=== PATIENT | male | born 1985 | race Caucasian/White ===

== ENCOUNTER 2021-02-14 08:27 | Inpatient (IN) | payer OTHER ==
[2021-02-14 10:00] VITALS: BMI 19.5
[2021-02-14] MEDS ORDERED: IBUPROFEN 400 MG TABLET (FP) PO PRN (10:30)
[2021-02-14] MEDS ORDERED: MAGNESIUM CITRATE 300 ML BOTTLE PO PRN (10:30)
[2021-02-14] MEDS ORDERED: METHOCARBAMOL 500 MG TABLET PO PRN (10:30)
[2021-02-14] MEDS ORDERED: cloNIDine HCL 0.1 MG TABLET PO PRN (10:30)
[2021-02-14] MEDS ORDERED: BISMUTH SUBSALICYLATE 262 MG/15 ML BTL PO PRN (10:30)
[2021-02-14] MEDS ORDERED: MENTHOL/PHENOL 1 EACH UD MM PRN (10:30)
[2021-02-14] MEDS ORDERED: NICOTINE POLACRILEX 2 MG GUM BUC PRN (10:30)
[2021-02-14] MEDS ORDERED: MAG HYDROX/AL HYDROX/SIMETH 30 ML UNIT-DOSE CUP PO PRN (10:30)
[2021-02-14] MEDS ORDERED: MAGNESIUM HYDROX 2400MG/30ML ORAL SUSPENSION 30 ML CUP PO PRN (10:30)
[2021-02-14] MEDS ORDERED: METHADONE HCL 10 MG TABLET (FOR DETOX USE ONLY) PO ONE (10:30)
[2021-02-14] MEDS ORDERED: ACETAMINOPHEN 325 MG TABLET (FP) PO PRN ×2 (10:30)
[2021-02-14] MEDS ORDERED: ONDANSETRON *ODT* 4 MG TABLET SL PRN (10:30)
[2021-02-14] MEDS: PRENATAL VITAMINS W/ FOLIC ACID TABLET (FP) PO SCH (11:35)
[2021-02-14] MEDS: NICOTINE 14 MG/24 HOURS TOPICAL PATCH TD SCH (11:39)
[2021-02-14] MEDS ORDERED: COVID-19 VAC,AD26(JANSSEN)/PF 0.5 ML IM ONE (12:00)
[2021-02-14 13:40] LABS: HEMATOCRIT 45.2 % (35.4-49); HEMOGLOBIN 14.7 GM/dL (11.7-16.9); MCH 28.4 pg (25.7-33.7); MCHC 32.5 g/dl (32.0-35.9); MEAN CELL VOLUME 87.4 fl (80-96); MEAN PLT VOLUME 10.2 fl (7.5-11.1); PLATELET COUNT 150 10^3/uL (134-434); RBC 5.18 M/mm3 (4.00-5.60); RDW 14.3 % (11.9-15.9); WHITE BLOOD COUNT 6.9 K/mm3 (4.0-10.0)
[2021-02-14 13:53] LABS: BLOOD UREA NITROGEN 12.9 mg/dL (7-18)
[2021-02-14] MEDS: hydrOXYzine PAMOATE 25 MG CAPSULE (FP) PO SCH ×3 (13:54→22:52)
[2021-02-14 14:00] LABS: BILIRUBIN,TOTAL 0.3 mg/dL (0.2-1); TOT PROT 7.6 g/dl (6.4-8.2)
[2021-02-14 14:10] LABS: ALBUMIN 4.2 g/dl (3.4-5.0); CALCIUM 9.6 mg/dL (8.5-10.1)
[2021-02-14 14:35] LABS: HIV INTERPRETATION NEGATIVE (NEGATIVE)
[2021-02-14] MEDS ORDERED: MELATONIN 5 MG TABLETS PO SCH (22:00)
[2021-02-14] MEDS: THIAMINE HCL 100 MG TABLET (FP) PO SCH (22:53)
[2021-02-15] MEDS: hydrOXYzine PAMOATE 25 MG CAPSULE (FP) PO SCH ×7 (06:53→23:39)
[2021-02-15] MEDS ORDERED: METHADONE HCL 5 MG TABLET (FOR DETOX USE ONLY) ONE (08:45)
[2021-02-15] MEDS ORDERED: METHADONE HCL 10 MG TABLET (FOR DETOX USE ONLY) ONE (08:46)
[2021-02-15] MEDS ORDERED: METHADONE (DETOX) 20 MG, METHADONE (DETOX) 5 MG PO ONE (10:00)
[2021-02-15] MEDS: NICOTINE 14 MG/24 HOURS TOPICAL PATCH TD SCH (10:33)
[2021-02-15] MEDS: PRENATAL VITAMINS W/ FOLIC ACID TABLET (FP) PO SCH (10:33)
[2021-02-15] MEDS: diazePAM 5 MG TABLET PO PRN (10:34)
[2021-02-15] MEDS: THIAMINE HCL 100 MG TABLET (FP) PO SCH ×2 (22:54→23:38)
[2021-02-15] MEDS: MELATONIN 5 MG TABLETS PO PRN (23:39)
[2021-02-16] MEDS: hydrOXYzine PAMOATE 25 MG CAPSULE (FP) PO SCH ×5 (06:31→22:18)
[2021-02-16] MEDS ORDERED: METHADONE HCL 10 MG TABLET (FOR DETOX USE ONLY) PO ONE (10:00)
[2021-02-16] MEDS: NICOTINE 14 MG/24 HOURS TOPICAL PATCH TD SCH (10:58)
[2021-02-16] MEDS: PRENATAL VITAMINS W/ FOLIC ACID TABLET (FP) PO SCH (10:58)
[2021-02-16] MEDS: THIAMINE HCL 100 MG TABLET (FP) PO SCH (22:18)
[2021-02-17] MEDS: hydrOXYzine PAMOATE 25 MG CAPSULE (FP) PO SCH ×5 (06:46→22:08)
[2021-02-17] MEDS ORDERED: METHADONE HCL 5 MG TABLET (FOR DETOX USE ONLY) ONE (09:25)
[2021-02-17] MEDS ORDERED: METHADONE HCL 10 MG TABLET (FOR DETOX USE ONLY) ONE (09:25)
[2021-02-17] MEDS ORDERED: METHADONE (DETOX) 10 MG, METHADONE (DETOX) 5 MG PO ONE (10:00)
[2021-02-17] MEDS: NICOTINE 14 MG/24 HOURS TOPICAL PATCH TD SCH (10:09)
[2021-02-17] MEDS: PRENATAL VITAMINS W/ FOLIC ACID TABLET (FP) PO SCH (10:11)
[2021-02-17] MEDS: diazePAM 5 MG TABLET PO PRN ×3 (10:11→22:08)
[2021-02-17] MEDS: THIAMINE HCL 100 MG TABLET (FP) PO SCH (22:10)
[2021-02-18] MEDS: hydrOXYzine PAMOATE 25 MG CAPSULE (FP) PO SCH ×5 (06:02→22:05)
[2021-02-18] MEDS ORDERED: METHADONE HCL 10 MG TABLET (FOR DETOX USE ONLY) PO ONE (10:00)
[2021-02-18] MEDS: PRENATAL VITAMINS W/ FOLIC ACID TABLET (FP) PO SCH (10:03)
[2021-02-18] MEDS: NICOTINE 14 MG/24 HOURS TOPICAL PATCH TD SCH (10:05)
[2021-02-18] MEDS: THIAMINE HCL 100 MG TABLET (FP) PO SCH (22:03)
[2021-02-18] MEDS: MELATONIN 5 MG TABLETS PO PRN (22:04)
[2021-02-19] MEDS: hydrOXYzine PAMOATE 25 MG CAPSULE (FP) PO SCH ×4 (05:23→17:17)
[2021-02-19] MEDS ORDERED: METHADONE HCL 5 MG TABLET (FOR DETOX USE ONLY) PO ONE (06:00)
[2021-02-19] MEDS: PRENATAL VITAMINS W/ FOLIC ACID TABLET (FP) PO SCH (10:04)
[2021-02-19] MEDS: NICOTINE 14 MG/24 HOURS TOPICAL PATCH TD SCH (10:04)
[2021-02-19 16:56] VITALS: BP 114/76; PULSE 62; TEMP 97.7
== END 2021-02-19 17:16 | disposition other institution (70) | DRG 773 ==
LOC: YASAS 08:27 → Y6N 11:06
PROVIDERS: ADMIT Allergy & Immunology; ATTEND Allergy & Immunology
PROC: HZ2ZZZZ Detoxification Services for Substance Abuse Treatment (ICD-10-PCS; principal; 2021-02-14)
DX: F11.23 Opioid dependence with withdrawal (principal); F14.20 Cocaine dependence, uncomplicated; F12.20 Cannabis dependence, uncomplicated; F17.210 Nicotine dependence, cigarettes, uncomplicated; F19.282 Other psychoactive substance dependence with psychoactive substance-induced sleep disorder; Z62.810 Personal history of physical and sexual abuse in childhood; Z91.5 Personal history of self-harm; Z56.0 Unemployment, unspecified; Z59.0 Homelessness
CPT/HCPCS: 0031A; 36415; 80053; 85027; 86780; 87389; 91303; 93005; 93010; C9803; U0003; U0005

== ENCOUNTER 2021-02-19 17:24 | Inpatient (IN) | payer OTHER ==
[2021-02-19] MEDS ORDERED: LOPERAMIDE HCL 2 MG CAPSULE PO PRN (17:58)
[2021-02-19] MEDS ORDERED: MAG HYDROX/AL HYDROX/SIMETH 30 ML UNIT-DOSE CUP PO PRN (17:58)
[2021-02-19] MEDS ORDERED: guaiFENesin 200 MG/10 ML 10 ML UNIT-DOSE CUPS PO PRN (17:58)
[2021-02-19] MEDS ORDERED: MAGNESIUM HYDROX 2400MG/30ML ORAL SUSPENSION 30 ML CUP PO PRN (17:58)
[2021-02-19] MEDS ORDERED: NICOTINE POLACRILEX 2 MG GUM BUC PRN (17:58)
[2021-02-19] MEDS ORDERED: MAGNESIUM CITRATE 300 ML BOTTLE PO PRN (17:58)
[2021-02-19] MEDS ORDERED: MENTHOL/PHENOL 1 EACH UD MM PRN (17:58)
[2021-02-19] MEDS ORDERED: ACETAMINOPHEN 325 MG TABLET (FP) PO PRN (17:58)
[2021-02-19] MEDS ORDERED: P-EPHED 60MG/TRIPROLIDI 2.5MG TABLET PO PRN (17:58)
[2021-02-19] MEDS: MELATONIN 5 MG TABLETS PO SCH (21:29)
[2021-02-19] MEDS: THIAMINE HCL 100 MG TABLET (FP) PO SCH (21:29)
[2021-02-20] MEDS: PRENATAL VITAMINS W/ FOLIC ACID TABLET (FP) PO SCH (09:45)
[2021-02-20] MEDS: MELATONIN 5 MG TABLETS PO SCH (21:18)
[2021-02-20] MEDS: THIAMINE HCL 100 MG TABLET (FP) PO SCH (21:18)
[2021-02-21] MEDS: PRENATAL VITAMINS W/ FOLIC ACID TABLET (FP) PO SCH (09:40)
[2021-02-21] MEDS: THIAMINE HCL 100 MG TABLET (FP) PO SCH (21:45)
[2021-02-21] MEDS: SUVOREXANT 10 MG TABLET PO PRN (21:47)
[2021-02-22] MEDS: PRENATAL VITAMINS W/ FOLIC ACID TABLET (FP) PO SCH (09:36)
[2021-02-22] MEDS: THIAMINE HCL 100 MG TABLET (FP) PO SCH (21:25)
[2021-02-22] MEDS: SUVOREXANT 10 MG TABLET PO PRN (21:25)
[2021-02-23] MEDS: PRENATAL VITAMINS W/ FOLIC ACID TABLET (FP) PO SCH (09:50)
[2021-02-23] MEDS: SUVOREXANT 10 MG TABLET PO PRN (21:26)
[2021-02-23] MEDS: THIAMINE HCL 100 MG TABLET (FP) PO SCH (21:27)
[2021-02-24] MEDS: PRENATAL VITAMINS W/ FOLIC ACID TABLET (FP) PO SCH (10:06)
[2021-02-24] MEDS: SUVOREXANT 10 MG TABLET PO PRN (21:15)
[2021-02-24] MEDS: THIAMINE HCL 100 MG TABLET (FP) PO SCH (21:15)
[2021-02-25] MEDS: PRENATAL VITAMINS W/ FOLIC ACID TABLET (FP) PO SCH (09:49)
[2021-02-25] MEDS ORDERED: MELATONIN 5 MG TABLETS PO ONE (21:25)
[2021-02-25] MEDS: THIAMINE HCL 100 MG TABLET (FP) PO SCH (22:39)
[2021-02-26] MEDS: PRENATAL VITAMINS W/ FOLIC ACID TABLET (FP) PO SCH (10:34)
[2021-02-26] MEDS: traZODone HCL 100 MG TABLET (FP) PO SCH (22:25)
[2021-02-26] MEDS: THIAMINE HCL 100 MG TABLET (FP) PO SCH (22:25)
[2021-02-27] MEDS: PRENATAL VITAMINS W/ FOLIC ACID TABLET (FP) PO SCH ×2 (09:57→11:56)
[2021-02-27] MEDS: traZODone HCL 100 MG TABLET (FP) PO SCH (21:25)
[2021-02-27] MEDS: THIAMINE HCL 100 MG TABLET (FP) PO SCH (21:25)
[2021-02-28] MEDS: PRENATAL VITAMINS W/ FOLIC ACID TABLET (FP) PO SCH (09:45)
[2021-02-28] MEDS: THIAMINE HCL 100 MG TABLET (FP) PO SCH (21:31)
[2021-02-28] MEDS: traZODone HCL 100 MG TABLET (FP) PO SCH (21:31)
[2021-03-01] MEDS: PRENATAL VITAMINS W/ FOLIC ACID TABLET (FP) PO SCH (10:02)
[2021-03-01] MEDS: traZODone HCL 100 MG TABLET (FP) PO SCH (21:41)
[2021-03-01] MEDS: THIAMINE HCL 100 MG TABLET (FP) PO SCH (21:41)
[2021-03-02] MEDS: PRENATAL VITAMINS W/ FOLIC ACID TABLET (FP) PO SCH (10:19)
[2021-03-02] MEDS: THIAMINE HCL 100 MG TABLET (FP) PO SCH (22:02)
[2021-03-02] MEDS: traZODone HCL 100 MG TABLET (FP) PO SCH (22:03)
[2021-03-03] MEDS: PRENATAL VITAMINS W/ FOLIC ACID TABLET (FP) PO SCH (09:56)
[2021-03-03] MEDS: THIAMINE HCL 100 MG TABLET (FP) PO SCH (21:18)
[2021-03-03] MEDS: traZODone HCL 100 MG TABLET (FP) PO SCH (21:18)
[2021-03-04] MEDS: PRENATAL VITAMINS W/ FOLIC ACID TABLET (FP) PO SCH (09:54)
[2021-03-04] MEDS: traZODone HCL 100 MG TABLET (FP) PO SCH (23:06)
[2021-03-04] MEDS: THIAMINE HCL 100 MG TABLET (FP) PO SCH (23:06)
[2021-03-04] MEDS: IBUPROFEN 400 MG TABLET (FP) PO PRN (23:07)
[2021-03-05] MEDS: IBUPROFEN 400 MG TABLET (FP) PO PRN ×2 (04:08→10:56)
[2021-03-05] MEDS: PRENATAL VITAMINS W/ FOLIC ACID TABLET (FP) PO SCH (10:55)
[2021-03-05] MEDS: THIAMINE HCL 100 MG TABLET (FP) PO SCH (21:55)
[2021-03-05] MEDS: traZODone HCL 100 MG TABLET (FP) PO SCH (21:55)
[2021-03-06] MEDS: PRENATAL VITAMINS W/ FOLIC ACID TABLET (FP) PO SCH (09:59)
[2021-03-06] MEDS: THIAMINE HCL 100 MG TABLET (FP) PO SCH (22:21)
[2021-03-06] MEDS: IBUPROFEN 400 MG TABLET (FP) PO PRN (22:23)
[2021-03-06] MEDS: traZODone HCL 100 MG TABLET (FP) PO SCH (22:23)
[2021-03-07] MEDS: PRENATAL VITAMINS W/ FOLIC ACID TABLET (FP) PO SCH (11:08)
[2021-03-07] MEDS: IBUPROFEN 400 MG TABLET (FP) PO PRN (11:09)
[2021-03-07] MEDS: THIAMINE HCL 100 MG TABLET (FP) PO SCH (21:15)
[2021-03-07] MEDS: traZODone HCL 100 MG TABLET (FP) PO SCH (21:16)
[2021-03-07] MEDS: risperiDONE 1 MG TABLET PO SCH (21:16)
[2021-03-08] MEDS: PRENATAL VITAMINS W/ FOLIC ACID TABLET (FP) PO SCH (11:06)
[2021-03-08] MEDS: THIAMINE HCL 100 MG TABLET (FP) PO SCH (22:52)
[2021-03-08] MEDS: risperiDONE 1 MG TABLET PO SCH (22:52)
[2021-03-08] MEDS: traZODone HCL 100 MG TABLET (FP) PO SCH (22:52)
[2021-03-09] MEDS: PRENATAL VITAMINS W/ FOLIC ACID TABLET (FP) PO SCH (10:47)
[2021-03-09] MEDS: traZODone HCL 100 MG TABLET (FP) PO SCH (21:53)
[2021-03-09] MEDS: risperiDONE 1 MG TABLET PO SCH (21:53)
[2021-03-09] MEDS: THIAMINE HCL 100 MG TABLET (FP) PO SCH (21:53)
[2021-03-10] MEDS: PRENATAL VITAMINS W/ FOLIC ACID TABLET (FP) PO SCH (10:34)
[2021-03-10] MEDS: traZODone HCL 100 MG TABLET (FP) PO SCH (22:12)
[2021-03-10] MEDS: THIAMINE HCL 100 MG TABLET (FP) PO SCH (22:12)
[2021-03-10] MEDS: risperiDONE 1 MG TABLET PO SCH (22:12)
[2021-03-11] MEDS: PRENATAL VITAMINS W/ FOLIC ACID TABLET (FP) PO SCH (10:51)
[2021-03-11] MEDS: risperiDONE 1 MG TABLET PO SCH (22:08)
[2021-03-11] MEDS: THIAMINE HCL 100 MG TABLET (FP) PO SCH (22:08)
[2021-03-11] MEDS: traZODone HCL 100 MG TABLET (FP) PO SCH (22:08)
[2021-03-12] MEDS: PRENATAL VITAMINS W/ FOLIC ACID TABLET (FP) PO SCH (10:34)
[2021-03-12] MEDS: THIAMINE HCL 100 MG TABLET (FP) PO SCH (21:19)
[2021-03-12] MEDS: risperiDONE 1 MG TABLET PO SCH (21:20)
[2021-03-12] MEDS: traZODone HCL 100 MG TABLET (FP) PO SCH (21:20)
[2021-03-13] MEDS: PRENATAL VITAMINS W/ FOLIC ACID TABLET (FP) PO SCH (10:04)
[2021-03-13] MEDS: THIAMINE HCL 100 MG TABLET (FP) PO SCH (21:25)
[2021-03-13] MEDS: risperiDONE 1 MG TABLET PO SCH (21:30)
[2021-03-13] MEDS: BENZTROPINE MESYLATE 1 MG TABLET PO PRN (21:30)
[2021-03-13] MEDS: traZODone HCL 100 MG TABLET (FP) PO SCH (21:30)
[2021-03-14] MEDS: PRENATAL VITAMINS W/ FOLIC ACID TABLET (FP) PO SCH (10:15)
[2021-03-14] MEDS: IBUPROFEN 400 MG TABLET (FP) PO PRN (10:16)
[2021-03-14] MEDS: traZODone HCL 100 MG TABLET (FP) PO SCH (22:52)
[2021-03-14] MEDS: risperiDONE 1 MG TABLET PO SCH (22:52)
[2021-03-14] MEDS: THIAMINE HCL 100 MG TABLET (FP) PO SCH (22:52)
[2021-03-14] MEDS: BENZTROPINE MESYLATE 1 MG TABLET PO PRN (22:52)
[2021-03-15] MEDS ORDERED: PT OWN MED DRAWER 7, Y5N ONE (08:56)
[2021-03-15] MEDS: PRENATAL VITAMINS W/ FOLIC ACID TABLET (FP) PO SCH (10:04)
[2021-03-15] MEDS: risperiDONE 1 MG TABLET PO SCH (22:51)
[2021-03-15] MEDS: traZODone HCL 100 MG TABLET (FP) PO SCH (22:51)
[2021-03-15] MEDS: THIAMINE HCL 100 MG TABLET (FP) PO SCH (22:51)
[2021-03-15] MEDS: BENZTROPINE MESYLATE 1 MG TABLET PO PRN (22:53)
[2021-03-16] MEDS: PRENATAL VITAMINS W/ FOLIC ACID TABLET (FP) PO SCH (10:35)
[2021-03-16] MEDS: traZODone HCL 100 MG TABLET (FP) PO SCH (21:43)
[2021-03-16] MEDS: THIAMINE HCL 100 MG TABLET (FP) PO SCH (21:43)
[2021-03-16] MEDS: BENZTROPINE MESYLATE 1 MG TABLET PO PRN (21:43)
[2021-03-16] MEDS: risperiDONE 1 MG TABLET PO SCH (21:43)
[2021-03-17] MEDS: PRENATAL VITAMINS W/ FOLIC ACID TABLET (FP) PO SCH (09:49)
[2021-03-17] MEDS: traZODone HCL 100 MG TABLET (FP) PO SCH (21:56)
[2021-03-17] MEDS: THIAMINE HCL 100 MG TABLET (FP) PO SCH (21:56)
[2021-03-17] MEDS: BENZTROPINE MESYLATE 1 MG TABLET PO PRN (21:56)
[2021-03-17] MEDS: risperiDONE 1 MG TABLET PO SCH (21:56)
[2021-03-18] MEDS: PRENATAL VITAMINS W/ FOLIC ACID TABLET (FP) PO SCH (10:14)
[2021-03-18] MEDS: AMOXICILLIN 500 MG CAPSULE (FP) PO SCH ×2 (14:22→21:23)
[2021-03-18] MEDS: BENZTROPINE MESYLATE 1 MG TABLET PO PRN (21:23)
[2021-03-18] MEDS: traZODone HCL 100 MG TABLET (FP) PO SCH (21:23)
[2021-03-18] MEDS: risperiDONE 1 MG TABLET PO SCH (21:23)
[2021-03-18] MEDS: THIAMINE HCL 100 MG TABLET (FP) PO SCH (21:24)
[2021-03-19] MEDS: AMOXICILLIN 500 MG CAPSULE (FP) PO SCH (06:04)
[2021-03-19 08:29] VITALS: BP 140/89; PULSE 96; TEMP 97.3
[2021-03-19] MEDS: PRENATAL VITAMINS W/ FOLIC ACID TABLET (FP) PO SCH (09:07)
== END 2021-03-19 09:45 | disposition home or self-care (01) | DRG 772 ==
LOC: YASAS 17:24 → Y5N 17:25
PROVIDERS: ADMIT Allergy & Immunology; ATTEND Allergy & Immunology
PROC: HZ42ZZZ Group Counseling for Substance Abuse Treatment, Cognitive-Behavioral (ICD-10-PCS; principal; 2021-02-19)
DX: F11.20 Opioid dependence, uncomplicated (principal); F14.20 Cocaine dependence, uncomplicated; F12.20 Cannabis dependence, uncomplicated; F17.210 Nicotine dependence, cigarettes, uncomplicated; F19.282 Other psychoactive substance dependence with psychoactive substance-induced sleep disorder; F29 Unspecified psychosis not due to a substance or known physiological condition; K04.7 Periapical abscess without sinus; K02.9 Dental caries, unspecified; Z62.810 Personal history of physical and sexual abuse in childhood; Z56.0 Unemployment, unspecified; Z59.0 Homelessness
CPT/HCPCS: J2794